=== PATIENT | male | born 1950 | race Caucasian/White ===

== ENCOUNTER 2016-12-06 06:58 | Day surgery (SDC) | payer MEDICARE, BC ==
[2016-12-06] MEDS ORDERED: Midazolam 1 MG/ML 2 ML SDV ONE (07:11)
[2016-12-06] MEDS ORDERED: Propofol 200 MG/20 ML SDV ONE (07:11)
[2016-12-06] MEDS ORDERED: fentaNYL 100 MCG/2 ML SDV ONE (07:11)
[2016-12-06] MEDS ORDERED: Dextrose 5%-Lactated Ringers 1,000 ML IV SCH (07:30)
[2016-12-06] MEDS ORDERED: Succinylcholine 200 MG/10 ML MDV ONE (07:51)
[2016-12-06 09:59] VITALS: BP 134/95
--- NOTE | 2016-12-06 22:10 | OR ---
DATE OF PROCEDURE: 12/06/2016 PREOPERATIVE DIAGNOSIS: Indications for screening colonoscopy. POSTOPERATIVE DIAGNOSIS: Uncomplicated left colonic diverticulosis. OPERATIVE PROCEDURE: Flexible colonoscopy. ANESTHESIA: IV sedation. INDICATION FOR PROCEDURE: A 66-year-old male presenting for a screening colonoscopy. He has no personal or family history of colon neoplasia. The plan is to proceed with colonoscopy with biopsies and/or polypectomy as indicated. Potential risks including bleeding and perforation were discussed, and the patient wishes to proceed. DETAILS OF PROCEDURE: The patient was taken to the operating room and placed in a left lateral decubitus position. IV sedation was administered, after which the initial digital rectal exam was performed and was unremarkable. Colonoscope was then passed into the rectum with retroflexion revealing uncomplicated hemorrhoidal columns. The scope was then eventually passed to the level of the cecum. The prep was fairly good with there being only a small amount of liquid stool present. The only real positive finding is that of some uncomplicated left-sided colonic diverticula. Otherwise, there were no areas of colitis. No polyps or other signs of neoplasia. The scope was then withdrawn and the procedure concluded. The patient was taken to the recovery room in satisfactory condition. Unless any recurrent symptoms or signs that develop, the next colonoscopy should be in about 10 years. Cem Garcia MD /[id number]
== END 2016-12-06 10:42 | disposition home or self-care (01) ==
LOC: JP.SDS 06:58
PROVIDERS: ATTEND Surgery
DX: Z12.11 Encounter for screening for malignant neoplasm of colon (principal); K57.30 Diverticulosis of large intestine without perforation or abscess without bleeding; G47.33 Obstructive sleep apnea (adult) (pediatric); E66.01 Morbid (severe) obesity due to excess calories; Z86.73 Personal history of transient ischemic attack (TIA), and cerebral infarction without residual deficits
CPT/HCPCS: G0121; J2250; J2704; J3010; J7042; J0330

== ENCOUNTER 2017-10-07 16:09 | Emergency (ER) | payer MEDICARE, BC ==
[2017-10-07 16:31] VITALS: BP 144/81
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
[2017-10-07] MEDS ORDERED: Lidocaine 1% with EPINEPHrine 1:100,000 50 ML MDV INFILT SCH (16:45)
[2017-10-07] MEDS ORDERED: Bacitracin Oint 1 GM U/D Packet TOP ONE (17:23)
--- NOTE | 2017-10-09 09:07 | CR ---
Hand Comp Min 3V Rt CLINICAL HISTORY: Nail thumb and second digit FINDINGS: There is a nail passing through the palmar soft tissues of the thumb. It also passes throug h the the second proximal phalanx. This may pass through the bone or be contiguous. There is no evide nce of fracture or bony fragments. Impression: There is a nail passing through the soft tissues of the thumb and the base of the second digit. No fracture or bone fragments are identified. If relevant post removal film should be consider ed.
== END 2017-10-07 18:08 | disposition home or self-care (01) ==
LOC: JP.ED 16:09
DX: S60.351A Superficial foreign body of right thumb, initial encounter (principal); Z79.82 Long term (current) use of aspirin; Z79.899 Other long term (current) drug therapy; W45.0XXA Nail entering through skin, initial encounter
CPT/HCPCS: 11730; 20103; 73130-26-RT; 73130-RT; 99283-25; 99284-25

== ENCOUNTER 2018-10-27 16:17 | Emergency (ER) | payer MEDICARE, BC ==
--- NOTE | 2018-10-27 17:01 | EDM.PDOC ---
ED HPI GENERAL MEDICAL PROBLEM - General Chief Complaint: Back Pain or Injury Stated Complaint: BACK PAIN Time Seen by Provider: 10/27/18 16:41 Source of Information: Reports: Patient, Family, RN Notes Reviewed History Limitations: Reports: No Limitations - History of Present Illness INITIAL COMMENTS - FREE TEXT/NARRATIVE: 67-year-old gentleman presents emergency sudden onset of back pain left side this occurred after a hard cough. He states he has pain when he takes a deep breath., No nausea vomiting no shortness of breath no diaphoresis - Related Data Allergies Allergy/AdvReac Type Severity Reaction Status Date / Time No Known Drug Allergies Allergy Other Verified 10/27/18 16:29 Home Meds: Home Meds Aspirin [Adult Low Dose Aspirin EC] 81 mg PO DAILY 12/02/16 [History] Clopidogrel [Plavix] 75 mg PO DAILY 12/02/16 [History] Gabapentin [Neurontin] 10/27/18 [History] tiZANidine [Zanaflex] 10/27/18 [History] Past Medical History HEENT History: Reports: Impaired Vision Respiratory History: Reports: Sleep Apnea Musculoskeletal History: Reports: Arthritis, Fracture Neurological History: Reports: CVA Other Neuro History: 2016, left sided numbness Endocrine/Metabolic History: Reports: Obesity/BMI 30+ - Infectious Disease History Infectious Disease History: Reports: Measles, Mumps - Past Surgical History HEENT Surgical History: Reports: None Respiratory Surgical History: Reports: None Endocrine Surgical History: Reports: None Neurological Surgical History: Reports: Other (See Below) Other Neurological Surgeries/Procedures: history of broken back secondary to fall 5-6 years ago Musculoskeletal Surgical History: Reports: Other (See Below) Other Musculoskeletal Surgeries/Procedures:: left knee surgery Social & Family History - Family History Family Medical History: Noncontributory - Tobacco Use Smoking Status *Q: Never Smoker - Caffeine Use Caffeine Use: Reports: Soda ED ROS GENERAL - Review of Systems Review Of Systems: See Below Constitutional: Reports: No Symptoms HEENT: Reports: No Symptoms Respiratory: Reports: No Symptoms Cardiovascular: Reports: Chest Pain GI/Abdominal: Reports: No Symptoms : Reports: No Symptoms Musculoskeletal: Reports: No Symptoms ED EXAM, GENERAL - Physical Exam Exam: See Below Exam Limited By: No Limitations General Appearance: Alert, WD/WN, No Apparent Distress Respiratory/Chest: No Respiratory Distress, Lungs Clear, Normal Breath Sounds, No Accessory Muscle Use, Other (Tenderness to palpation mid scapular line T4 level) Cardiovascular: Regular Rate, Rhythm, No Murmur GI/Abdominal: Soft, Non-Tender Extremities: Pedal Edema Course - Vital Signs Last Recorded V/S: Last Vital Signs Temp 97.2 F 10/27/18 16:35 Pulse 73 10/27/18 17:04 Resp 17 10/27/18 17:04 BP 143/86 H 10/27/18 17:04 Pulse Ox 96 10/27/18 17:04 - Orders/Labs/Meds Orders: Active Orders 24 hr Category Date Time Status Cardiac Monitoring [RC] .As Directed Care 10/27/18 16:53 Active EKG Documentation Completion [RC] ASDIRECTED Care 10/27/18 16:53 Active EKG 12 Lead [EK] Stat Ther 10/27/18 16:53 Ordered Labs: Laboratory Tests 10/27/18 10/27/18 Range/Units 17:09 17:09 WBC 7.0 (4.5-11.0) K/uL RBC 4.73 (4.30-5.90) M/uL Hgb 14.6 (12.0-15.0) g/dL Hct 44.9 (40.0-54.0) % MCV 95 (80-98) fL MCH 31 (27-31) pg MCHC 33 (32-36) % Plt Count 213 (150-400) K/uL Neut % (Auto) 64 (36-66) % Lymph % (Auto) 21 L (24-44) % Walker % (Auto) 11 H (2-6) % Eos % (Auto) 3 (2-4) % Baso % (Auto) 1 (0-1) % Sodium 142 (140-148) mmol/L Potassium 4.0 (3.6-5.2) mmol/L Chloride 109 H (100-108) mmol/L Carbon Dioxide 25 (21-32) mmol/L Anion Gap 12.0 (5.0-14.0) mmol/L BUN 19 H (7-18) mg/dL Creatinine 1.1 (0.8-1.3) mg/dL Est Cr Clr Drug Dosing 70.36 mL/min Estimated GFR (MDRD) > 60 (>60) Glucose 117 H (74-106) mg/dL Calcium 8.4 L (8.5-10.1) mg/dL Total Bilirubin 0.4 (0.2-1.0) mg/dL AST 19 (15-37) U/L ALT 41 (12-78) U/L Alkaline Phosphatase 81 (46-116) U/L CK-MB (CK-2) 2.6 (0-3.6) mg/mL Troponin I < 0.017 (0.000-0.056) ng/mL Total Protein 6.4 (6.4-8.2) g/dL Albumin 3.2 L (3.4-5.0) g/dL Globulin 3.2 (2.3-3.5) g/dL Albumin/Globulin Ratio 1.0 L (1.2-2.2) Departure - Departure Time of Disposition: 18:16 Disposition: Home, Self-Care 01 Condition: Fair Clinical Impression: Chest wall pain Referrals: Kala Merino MD [Primary Care Provider] - Forms: ED Department Discharge Additional Instructions: Use Tylenol or Motrin as needed for pain control, Please followup with your primary care provider in 3-5 days if not better, please call return to the emergency department with worsening of symptoms. - My Orders Last 24 Hours: My Active Orders 10/27/18 16:53 Cardiac Monitoring [RC] .As Directed EKG Documentation Completion [RC] ASDIRECTED EKG 12 Lead [EK] Stat - Assessment/Plan Last 24 Hours: My Active Orders 10/27/18 16:53 Cardiac Monitoring [RC] .As Directed EKG Documentation Completion [RC] ASDIRECTED EKG 12 Lead [EK] Stat Plan: Assessment Acuity = acute Site and laterality = chest wall pain Etiology = secondary cough Manifestations = none Location of injury = Home Lab values = CBC, CMP, troponin, chest x-ray, EKG is normal limits Plan Use Tylenol Motrin as needed for pain control follow-up primary care 3-5 days not better This note was dictated using [employer] voice recognition software please call with any questions on syntax or grammar.
--- NOTE | 2018-10-27 18:07 | CRLCR ---
INDICATION: Chest pain TECHNIQUE: Chest 2 views. COMPARISON: None. FINDINGS: Cardiovascular and mediastinum: Heart size and vasculature are normal in caliber and appearance. Mediastinum is within normal limits. Lungs and pleural spaces: Lungs are clear. No sign of infiltrate or mass. No sign of pleural effusion. No pneumothorax. Bones and soft tissues: No significant findings. IMPRESSION: Unremarkable chest. Dictated by: Dav Burciaga MD @ 10/27/2018 18:05:00 (Electronically Signed)
[2018-10-27 18:11] VITALS: BP 145/76; PULSE 71
== END 2018-10-27 18:28 | disposition home or self-care (01) ==
LOC: JP.ED 16:17
DX: R07.89 Other chest pain (principal); E66.9 Obesity, unspecified; M19.90 Unspecified osteoarthritis, unspecified site; Z86.73 Personal history of transient ischemic attack (TIA), and cerebral infarction without residual deficits; Z79.82 Long term (current) use of aspirin; Z79.899 Other long term (current) drug therapy
CPT/HCPCS: 36415; 71046; 80053; 82553; 84484; 85025; 93005; 93010; 99283; 99284-25

== ENCOUNTER 2019-11-28 19:27 | Emergency (ER) | payer MEDICARE, BC ==
[2019-11-28 19:57] VITALS: BP 130/72; PULSE 76
--- NOTE | 2019-11-28 20:18 | EDM.PDOC ---
ED HPI GENERAL MEDICAL PROBLEM - General Chief Complaint: Lower Extremity Injury/Pain Stated Complaint: FELL TWISTED RT ANKLE Time Seen by Provider: 11/28/19 20:15 Source of Information: Reports: Patient History Limitations: Reports: No Limitations - History of Present Illness INITIAL COMMENTS - FREE TEXT/NARRATIVE: pt lost his balance fell and twisted his rt ankle. He has a fair amount of pain and swelling present. Onset: Today, Sudden Duration: Hour(s): Location: Reports: Lower Extremity, Right Associated Symptoms: Reports: No Other Symptoms Right Ankle Pain Score (Numeric/FACES): 4 - Related Data Allergies Allergy/AdvReac Type Severity Reaction Status Date / Time No Known Drug Allergies Allergy Other Verified 11/28/19 19:56 Home Meds: Home Meds Aspirin [Adult Low Dose Aspirin EC] 81 mg PO DAILY 12/02/16 [History] Gabapentin [Neurontin] 300 mg PO DAILY 10/27/18 [History] tiZANidine [Zanaflex] 4 mg PO DAILY 10/27/18 [History] Furosemide 40 mg PO DAILY 11/28/19 [History] Past Medical History HEENT History: Reports: Impaired Vision Respiratory History: Reports: Sleep Apnea Musculoskeletal History: Reports: Arthritis, Fracture Neurological History: Reports: CVA Other Neuro History: 2016, left sided numbness Endocrine/Metabolic History: Reports: Obesity/BMI 30+ - Infectious Disease History Infectious Disease History: Reports: Measles, Mumps - Past Surgical History HEENT Surgical History: Reports: None Respiratory Surgical History: Reports: None Endocrine Surgical History: Reports: None Neurological Surgical History: Reports: Other (See Below) Other Neurological Surgeries/Procedures: history of broken back secondary to fall 5-6 years ago Musculoskeletal Surgical History: Reports: Other (See Below) Other Musculoskeletal Surgeries/Procedures:: left knee surgery Social & Family History - Family History Family Medical History: Noncontributory - Tobacco Use Smoking Status *Q: Never Smoker Second Hand Smoke Exposure: No - Caffeine Use Caffeine Use: Reports: None - Recreational Drug Use Recreational Drug Use: No Review of Systems - Review of Systems Review Of Systems: See Below Constitutional: Reports: No Symptoms Eyes: Reports: No Symptoms Ears: Reports: No Symptoms Nose: Reports: No Symptoms Mouth/Throat: Reports: No Symptoms Respiratory: Reports: No Symptoms Cardiovascular: Reports: No Symptoms Musculoskeletal: Reports: Other (pain and swelling in the rt ankle. ) Skin: Reports: No Symptoms ED EXAM, GENERAL - Physical Exam Exam: See Below Free Text/Narrative:: pt has a painful rt ankle after a fall. Exam Limited By: No Limitations General Appearance: Alert, Anxious Extremities: Other (pt has a swollen rt ankle which is painful, He has a ggod pulse present. ) Neurological: Alert, Oriented, Normal Cognition Course - Vital Signs Last Recorded V/S: Last Vital Signs Temp 36.9 C 11/28/19 19:58 Pulse 76 11/28/19 19:58 Resp 16 11/28/19 19:58 BP 130/72 11/28/19 19:58 Pulse Ox 93 L 11/28/19 19:58 - Orders/Labs/Meds Orders: Active Orders 24 hr Category Date Time Status Ankle Min 3V Rt [CR] Stat Exams 11/28/19 20:12 Taken Departure - Departure Time of Disposition: 20:56 Disposition: Home, Self-Care 01 Condition: Fair Clinical Impression: Fracture of distal fibula - Discharge Information Referrals: PCP,None [Primary Care Provider] - Forms: ED Department Discharge Care Plan Goals: cam walker, crutches, norco 5/325 q6h prn for [pain # 6. Pt will call in am and make an appt with dr francis, ortho from [facility], pt may use tylenol and motrin for lesser pain, elevate leg to prevent swelling, cool pack over the boot. send a copy of the xray on disc. Sepsis Event Note (ED) - Evaluation Sepsis Screening Result: No Definite Risk - Focused Exam Vital Signs: Vital Signs Temp Pulse Resp BP Pulse Ox 11/28/19 19:58 36.9 C 76 16 130/72 93 L 11/28/19 19:55 36.9 C 76 16 130/72 93 L - My Orders Last 24 Hours: My Active Orders 11/28/19 20:12 Ankle Min 3V Rt [CR] Stat - Assessment/Plan Last 24 Hours: My Active Orders 11/28/19 20:12 Ankle Min 3V Rt [CR] Stat
--- NOTE | 2019-11-29 09:03 | CR ---
Ankle Min 3V Rt CLINICAL HISTORY: Fall FINDINGS: The soft tissues are swollen. There is a displaced oblique fracture of the distal fibula. There is also a fracture of the posterior plafond. There is an ossification off the medial malleolus of uncertain chronology. avulsion. There is lateral subluxation of the talus with widening of the medial ankle mortise. Impression:Distal tib-fib fracture with talar dislocation
== END 2019-11-28 21:30 | disposition home or self-care (01) ==
LOC: JP.ED 19:27
DX: S82.831A Other fracture of upper and lower end of right fibula, initial encounter for closed fracture (principal); M19.90 Unspecified osteoarthritis, unspecified site; E66.9 Obesity, unspecified; Z68.41 Body mass index [BMI] 40.0-44.9, adult; Z79.82 Long term (current) use of aspirin; Z79.899 Other long term (current) drug therapy; Z86.73 Personal history of transient ischemic attack (TIA), and cerebral infarction without residual deficits; W19.XXXA Unspecified fall, initial encounter
CPT/HCPCS: 73610-26-RT; 73610-RT; 99283; 99283-25